=== PATIENT | male | born 1985 | race Caucasian/White ===

== ENCOUNTER 2020-04-20 17:37 | Emergency (ER) | payer MEDICAID ==
[~2020-04-20] VITALS: Ht 182.9 cm; Wt 102.1 kg
--- NOTE | 2020-04-20 17:40 | NUR ---
CALLED TO TRIAGE,NO ANSWER
--- NOTE | 2020-04-20 17:40 | NUR ---
THE PATIENT BIB SELF C/O ABSCESS ON THE BACK OF THE HEAD FOR 3 DAYS. THE PATIENT IS IN ER BED #4. ALERT AND ORIENTED X4. RESPIRATION REGULAR AND UNLABORED. THE PATIENT IN ROOM AIR. WILL CONTINUE TO MONITOR.
[2020-04-20 17:45] VITALS: BP 148/79
[2020-04-20] MEDS ORDERED: CEPH500T PO (18:49)
[2020-04-20] MEDS: CEPHALEXIN MONOHYDRATE 500 MG CAPSULE PO ONE (18:55)
[2020-04-20] MEDS ORDERED: CEPHALEXIN MONOHYDRATE 500 MG CAPSULE PO ONE (18:56)
== END 2020-04-20 19:56 | disposition home or self-care (01) ==
LOC: ER 17:45
DX: S00.03XA Contusion of scalp, initial encounter (principal); L03.811 Cellulitis of head [any part, except face]; Z59.0 Homelessness; W18.39XA Other fall on same level, initial encounter; Y93.89 Activity, other specified; Y92.89 Other specified places as the place of occurrence of the external cause; Y99.8 Other external cause status
CPT/HCPCS: 70450-TC; 72125-TC

== ENCOUNTER → 2022-12-19 | Emergency (ER) | payer MEDICAID ==
[~2022-12-19] VITALS: Ht 182.9 cm; Wt 117.9 kg
[~2022-12-19] MED LIST: CEPH500T PO
[2022-12-19 11:26] VITALS: BP 156/101; TEMP 98.1; O2SAT 98
== END | disposition home or self-care (01) ==
LOC: ER 11:26
DX: K64.9 Unspecified hemorrhoids (principal); Z79.899 Other long term (current) drug therapy; Z59.00 Homelessness unspecified